=== PATIENT | female | born 1930 | race Caucasian/White ===

== ENCOUNTER 2018-08-03 18:29 | Inpatient (IN) | payer MEDICARE, OTHER ==
[~2018-08-03] VITALS: Ht 162.6 cm; Wt 69.1 kg
[~2018-08-03 18:29] MED LIST: ASPIRIN81 MG PO; ATENOLOL25 MG PO; CARAFATE1 GM PO; CLONIDINE HCL0.1 MG PO; Cefuroxime Axetil PO; EVISTA60 MG PO; FENOFIBRATE145 MG PO; FENOFIBRATE200 MG PO; FEROSUL325 MG PO; FUROSEMIDE20 MG PO; LEVOTHYROXINE75 MCG PO; LOVASTATIN40 MG PO; NEXIUM40 MG PO; NIFEDIPINE ER60 MG PO; SUCRALFATE1 GM PO
[2018-08-03] MEDS ORDERED: ONDANSETRON HCL INJ 2MG/ML 2ML 2 MG/ML VIAL IV ONE (18:48)
[2018-08-03] MEDS ORDERED: MORPHINE SULFATE 2 MG/ML SYR 1ML IV STA (18:48)
[2018-08-03] MEDS ORDERED: SODIUM CHLORIDE 0.9% 500ML 500 ML IV STA (18:48)
[2018-08-03] MEDS ORDERED: MORPHINE SULFATE INJ 4 MG/ML INJ 1ML IV ONE (19:00)
[2018-08-03 20:05] LABS: BASOPHILS % 0.1 % (0.0-1.0); HEMATOCRIT 32.5 % (34.2-44.1); HEMOGLOBIN 10.8 g/dL (12.0-16.0); LYMPHOCYTES # (AUTO) 1.6 (1.0-3.2); LYMPHOCYTES % 19.3 % (18.0-39.1); MEAN CORPUSCULAR HGB CONC 33.2 g/dL (31-35); MEAN CORPUSCULAR VOLUME 93.4 fL (81-99); MONOCYTES # (AUTO) 0.6 (0.2-0.8); MONOCYTES % 6.9 % (4.4-11.3); NEUTROPHILS # (AUTO) 6.2 (2.1-6.9); PLATELET COUNT 285 x10e3/uL (140-360); RED BLOOD COUNT 3.48 x10e6/uL (3.6-5.1); RED CELL DISTRIBUTION WIDTH 13.3 % (11.7-14.4)
--- NOTE | 2018-08-03 20:11 | Diagnostic Imaging Report ---
EXAMINATION: CHEST SINGLE (PORTABLE) INDICATION: Pain. COMPARISON: None FINDINGS: TUBES and LINES: None. LUNGS: Bibasilar subsegmental atelectasis. There is no evidence of pneumonia or pulmonary edema. PLEURA: No pleural effusion or pneumothorax. HEART AND MEDIASTINUM: The cardiomediastinal silhouette is unremarkable. The aorta is tortuous and ectatic prominence of ascending aorta. BONES AND SOFT TISSUES: No acute osseous lesion. Soft tissues are unremarkable. UPPER ABDOMEN: No free air under the diaphragm. IMPRESSION: No acute thoracic abnormality. Tortuous aorta. Signed by: Dr. Dontrell Ron M.D. on 08/03/2018 8:07 PM
[2018-08-03 20:16] LABS: INR 0.9; PROTHROMBIN TIME 12.6 seconds (11.9-14.5)
[2018-08-03 20:17] LABS: PARTIAL THROMBOPLASTIN TIME 30.1 seconds (23.8-35.5)
[2018-08-03 20:27] LABS: ALBUMIN 3.7 g/dL (3.5-5.0); ALBUMIN/GLOBULIN RATIO 0.7 (0.8-2.0); ANION GAP 13.9 mmol/L (8-16); CALCIUM 10.7 mg/dL (8.4-10.2); CHOL/HDL RATIO 4.4 (3.0-3.6); CREATININE, SERUM 1.6 mg/dL (0.57-1.11); MAGNESIUM 1.8 MG/DL (1.3-2.1); POTASSIUM 3.9 mmol/L (3.5-5.1)
[2018-08-03 20:33] LABS: CREATINE KINASE MB 2.8 ng/mL (0-5.0)
[2018-08-03] MEDS ORDERED: DIATRIZOATE MEGL/DIATRIZOA SOD 30 ML BTL PO ONE (20:46)
[2018-08-03 20:57] LABS: BILIRUBIN,URINE NEGATIVE (NEGATIVE); CLARITY,URINE CLEAR (CLEAR); COLOR,URINE STRAW (YELLOW); KETONES,URINE NEGATIVE (NEGATIVE); LEUKOCYTE ESTERASE ,URINE NEGATIVE (NEGATIVE); NITRITE,URINE NEGATIVE (NEGATIVE); PROTEIN,URINE DIPSTICK NEGATIVE (NEGATIVE); URINE UROBILINOGEN 0.2 mg/dL (0.2 - 1)
[2018-08-03 21:10] LABS: BACTERIA,URINE MODERATE /HPF
[2018-08-03] MEDS ORDERED: ATACAND16 MG PO (21:26)
[2018-08-03] MEDS ORDERED: NIFEDIPINE ER30 M1 PO (21:26)
[2018-08-03] MEDS ORDERED: CALCIUM 500+D1 EACH PO (21:26)
[2018-08-03] MEDS ORDERED: NYSTATIN1 EAC2 (21:26)
[2018-08-03] MEDS ORDERED: POLYETHYLENE GL17 GM PO (21:26)
--- NOTE | 2018-08-03 21:30 | Diagnostic Imaging Report ---
EXAMINATION: CT of the abdomen and pelvis without contrast. TECHNIQUE: Helical CT images of the abdomen and pelvis were performed from the lung bases to the lesser trochanters. No intravenous contrast was given per renal stone protocol. Coronal and sagittal reformatted images were obtained.Dose modulation, iterative reconstruction, and/or weight based adjustment of the mA/kV was utilized to reduce the radiation dose to as low as reasonably achievable. COMPARISON: None. CLINICAL HISTORY:Epigastric pain DISCUSSION: ABSENCE OF INTRAVENOUS CONTRAST DECREASES SENSITIVITY FOR DETECTION OF FOCAL LESIONS AND VASCULAR PATHOLOGY. ABDOMEN/PELVIS: LOWER THORAX: Unremarkable. HEPATOBILIARY:No focal hepatic lesions. Age-related dilation of the common bile duct. The gallbladder is normal. SPLEEN: No splenomegaly. PANCREAS: No focal masses or ductal dilatation. ADRENALS: No adrenal nodules. KIDNEYS/URETERS: Right extrarenal pelvis. Cavitation adjacent to the right ureter within the gonadal vein. PELVIC ORGANS/BLADDER: Bladder is normal. Hysterectomy. PERITONEUM/RETROPERITONEUM: No free air or fluid. LYMPH NODES: No intra-abdominal,retroperitoneal, pelvic or inguinal lymphadenopathy. VESSELS: Vascular calcifications. GI TRACT: No distention or wall thickening. Scattered colonic diverticulosis without inflammatory change. BONES AND SOFT TISSUES: Sclerotic foci in the left iliac bone. Lower lumbar facet arthrosis. Scattered degenerative disc disease most prominent at the thoracolumbar junction. IMPRESSION: No acute CT finding. Signed by: Dr. Kristopher Balderrama M.D. on 08/03/2018 9:27 PM
--- OUTSIDE RECORDS SUMMARY | 2018-08-03 22:41 | XMS REPORT ---
[facility] Address Unknown Phone Unavailable Care Team Providers Care Manager Council Name Role Phone Kira GORDON Unavailable Unavailable Problems This patient has no known problems. Allergies, Adverse Reactions, Alerts This patient has no known allergies or adverse reactions. Medications This patient has no known medications. Results Test Description Test Time Test Comments Text Results Atomic Results Result Comments CT ABDOMEN/PELVIS WO 2018-08-03 21:20:00 [facility] [address] [address] Patient Name: NEETA TORRES MR #: [id number] : 1930 Age/Sex: 88/F Req #: [id number] Adm Physician: Ordered by: TRISHA KATZ NP Report #: [id number] Location: ER Room/Bed: Procedure: [id number] CT/CT ABDOMEN/PELVIS WO Exam Date: 08/03/18 Exam Time: 2049 REPORT STATUS: Signed EXAMINATION: CT of the abdomen and pelvis without contr ast. TECHNIQUE: Helical CT images of the abdomen and pelvis were performed from the lung bases to the lesser trochanters. No intravenous contrast was given per renal stone protocol. Coronal and sagittal reformatted images were obtained.Dose modulation, iterative reconstruction, and/or weight based adjustment of the mA/kV was utilized to reduce the radiation dose to as low as reasonably achievable. COMPARISON: None. CLINICAL HISTORY:Epigastric pain DISCUSSION: ABSENCE OF INTRAVENOUS CONTRAST DECREASES SENSITIVITY FOR DETECTION OF FOCAL LESIONS AND VASCULAR PATHOLOGY. ABDOMEN/PELVIS: LOWER THORAX: Unremarkable. HEPATOBILIARY:No focal hepatic lesions. Age- related dilation of the common bile duct. The gallbladder is normal. SPLEEN: No splenomegaly. PANCREAS: No focal masses or ductal dilatation. ADRENALS: No adrenal nodules. KIDNEYS/URETERS: Right extrarenal pelvis. Cavitation adjacent to the right ureter within the gonadal vein. PELVIC ORGANS/BLADDER: Bladder is normal. Hysterectomy. PERITONEUM/RETROPERITONEUM: No free air or fluid. LYMPH NODES: No intra- abdominal,retroperitoneal, pelvic or inguinal lymphadenopathy. VESSELS: Vascular calcifications. GI TRACT: No distention or wall thickening. Scattered colonic diverticulosis without inflammatory change. BONES AND SOFT TISSUES: Sclerotic foci in the left iliac bone. Lower lumbar facet arthrosis. Scattered degenerative disc disease most prominent at the thoracolumbar junction. IMPRESSION: No acute CT finding. Signed by: Dr. Nathanael Rangel M.D. on 08/03/2018 9:27 PM Dictated By: NATHANAEL RANGEL MD 26 Transcribed By: ANDRA on 08/03/182126 COPY TO: TRISHA KATZ NP CHEST SINGLE (PORTABLE) 2018-08-03 20:06:00 [address] [address] Patient Name: NEETA TORRES MR #: [id number] : 1930 Age/Sex: 88/F Req #: [id number] Adm Physician: Ordered by: TRISHA KATZ NP Report #: [id number] Location: ER Room/Bed: Procedure: [id number] DX/CHEST SINGLE (PORTABLE) Exam Date: 08/03/18 Exam Time: 1914 REPORT STATUS: Signed EXAMINATION: CHEST SINGLE (PORTABLE) INDICAT ION: Pain. COMPARISON: None FINDINGS: TUBES and LINES: None. LUNGS: Bibasilar subsegmental atelectasis. There is no evidence of pneumonia or pulmonary edema. PLEURA: No pleural effusion or pneumothorax. HEART AND MEDIASTINUM: The cardiomediastinal silhouette is unremarkable. The aorta is tortuous and ectatic prominence of ascending aorta. BONES AND SOFT TISSUES: No acute osseous lesion. Soft tissues are unremarkable. UPPER ABDOMEN: No free air under the diaphragm. IMPRESSION: No acute thoracic abnormality. Tortuous aorta. Signed by: Dr. Dontrell Porter M.D. on 08/03/2018 8:07 PM Dictated By: RABIA PORTER MD, MD 06 Transcribed By: ANDRA on 08/03/182006 COPY TO: TRISHA KATZ NP
[2018-08-03] MEDS ORDERED: HYDRALAZINE HCL 20 MG/ML VIAL IV PRN (22:45)
[2018-08-03] MEDS: ONDANSETRON HCL INJ 2MG/ML 2ML 2 MG/ML VIAL IV PRN (22:55)
[2018-08-03] MEDS: SODIUM CHLORIDE 0.9% 1000ML 1,000 ML IV SCH (22:55)
[2018-08-03] MEDS: PIPER-TAZ 3.375 GM / NS 50ML IV SCH (22:55)
[2018-08-03] MEDS: MORPHINE SULFATE INJ 4 MG/ML INJ 1ML IV PRN (22:55)
[2018-08-03 23:30] VITALS: BP 182/79
[2018-08-03 23:42] VITALS: BP 160/62
[2018-08-04] VITALS (15 sets, daily range): BP systolic 86–176; BP diastolic 57–112
--- NOTE | 2018-08-04 03:33 | NUR ---
RN received report from ER around 2300. Patient arrived on the floor around 2325 for epigastric pain and decreased appetite. The patient is A/Ox4 with the vital signs within the normal parameters. Bed set low, wheels locked with side rails up x2 and bed alarm on. Patient was instructed to use call light when needing to void. The patient is to have MRCP tomorrow morning. The patient rated her pain 0/10 after receiving pain medication in the ER prior to arrival on the floor. The patient is hard of hearing and wears hearing aid. Monitor patient for pain.
[2018-08-04 05:28] LABS: BASOPHILS % 0.1 % (0.0-1.0); HEMATOCRIT 28.5 % (34.2-44.1); LYMPHOCYTES % 13.6 % (18.0-39.1); MEAN CORPUSCULAR HEMOGLOBIN 30.2 pg (28-32); MEAN CORPUSCULAR HGB CONC 31.6 g/dL (31-35); MEAN CORPUSCULAR VOLUME 95.6 fL (81-99); MONOCYTES # (AUTO) 0.8 (0.2-0.8); MONOCYTES % 11.1 % (4.4-11.3); NEUTROPHILS # (AUTO) 5.7 (2.1-6.9); NEUTROPHILS % 74.8 % (38.7-80.0); PLATELET COUNT 225 x10e3/uL (140-360); RED BLOOD COUNT 2.98 x10e6/uL (3.6-5.1); RED CELL DISTRIBUTION WIDTH 13.4 % (11.7-14.4)
[2018-08-04 05:54] LABS: ALBUMIN 2.8 g/dL (3.5-5.0); ALBUMIN/GLOBULIN RATIO 0.7 (0.8-2.0); ANION GAP 8.9 mmol/L (8-16); CALCIUM 9.4 mg/dL (8.4-10.2); CREATININE, SERUM 1.3 mg/dL (0.57-1.11); POTASSIUM 4.9 mmol/L (3.5-5.1)
--- NOTE | 2018-08-04 07:12 | NUR ---
PT AWAKE RESP EVEN AND UNLABORED, NO C/O PAIN WHEN ASKED, PT ABLE TO MAKE NEEDS KNOWN, PT HAS FAMILY MEMBERS AT BEDSIDE, CALL LIGHT IN REACH.
[2018-08-04] MEDS: ONDANSETRON HCL INJ 2MG/ML 2ML 2 MG/ML VIAL IV PRN (07:37)
[2018-08-04] MEDS: MORPHINE SULFATE INJ 4 MG/ML INJ 1ML IV PRN ×2 (07:37→19:30)
[2018-08-04] MEDS: SODIUM CHLORIDE 0.9% 1000ML 1,000 ML IV SCH ×3 (08:47→18:13)
--- NOTE | 2018-08-04 09:22 | Consultation ---
DATE OF CONSULTATION: 08/04/2018 REASON FOR PRESENTATION: Right upper quadrant pain. HISTORY OF PRESENT ILLNESS: The patient is a pleasant 88-year-old female, who looks younger than her chronologic age, admitted through the emergency room to Dr. Peña's service complaining of right upper quadrant pain that had become more severe the evening of admission after drinking soup at home. Prior to that, she had developed some abdominal discomfort. No major severe pain two days ago. She did not have any vomiting. The patient denied any similar episodes in the past. The patient in the emergency room underwent a renal stone protocol, which revealed no acute findings. The reason for the renal stone protocol is not clear to me as this patient's urine was entirely normal. Her admission CBC revealed a white count of 8.49, hemoglobin of 10.8, hematocrit of 32.5, normal platelet count. Coagulation studies were normal. Liver chemistries were abnormal with bilirubin of 1.4, AST 404, and ALT of 367 with a normal alkaline phosphatase. Subsequent liver function tests from this morning on August 04, 2018, revealed a bilirubin of 1.8 and an AST of 595, which is up, and an ALT of 429, which is up, and a normal alkaline phosphatase still at 133. The patient at this point is feeling better and repeat WBC is 7.59. PAST MEDICAL HISTORY: Significant for hyperthyroidism and hypertension. PAST SURGICAL HISTORY: Previous surgeries include hysterectomy and appendectomy as a child. ALLERGIES: SULFA AND CIPRO. SOCIAL HISTORY: She does not drink. Does not smoke. REVIEW OF SYSTEMS: Remarkable for what has been stated. PHYSICAL EXAMINATION: GENERAL: Reveals an 88-year-old female, in no acute distress. HEAD, EYES, EARS, NOSE, AND THROAT: Reveals no acute process. LUNGS: Clear. HEART: Reveals regular sinus rhythm. ABDOMEN: Soft with some right upper quadrant tenderness. No obvious mass. There is some protuberance of the abdomen. EXTREMITIES: Reveal no clubbing, cyanosis, or edema. ASSESSMENT: Right upper quadrant pain. CT scan renal stone protocol (that means without either IV or oral contrast) reveals no acute process. There is elevation of the liver enzymes. R/O choledocholithiais PLAN: At this point, we are awaiting a cholangio MRCP to rule out the possibility of a common bile duct stone versus pancreatic pathology versus cholecystitis. She is already on IV Unasyn. We will follow the patient along with you. MD SHANA Hernández/NAIMA /[id number] DALLIN
--- NOTE | 2018-08-04 12:00 | NUR ---
pt was given 10mg hydralazine iv, for b/p 173/72, pt tolerated well.
--- NOTE | 2018-08-04 12:13 | Diagnostic Imaging Report ---
EXAM: Magnetic Resonance Cholangiopancreatography (M.R.C.P.) INDICATION: ^EVAL FOR CHOLODUCOLITHIASIS^Y COMPARISON: CT abdomen and pelvis 08/03/2018. TECHNIQUE: Multiplanar, multisequence MRCP was performed, with sequences including coronal turbo spin-echo T1-weighted scans, [facility] MRCP scans, coronal spin, coronal MPR 2, SMRCP 3D HR, [facility] MRCP GALVAN. Thick and thin thin slab MRCP sequences are performed with rotational images. IV Contrast: None Oral Contrast: None Medications: None COMPLICATIONS: None FINDINGS: LOWER THORAX: Trace bilateral pleural effusions with atelectasis. HEPATOBILIARY: Mild periportal edema. Mild common bile duct dilatation measuring up to 10 mm. Mild intrahepatic biliary dilatation. 0.6 cm distal CBD stone. Questionable other 2 other tiny stones distally. GALLBLADDER: Gallbladder is distended measuring 8.9 x 4.4 cm. Diffuse wall thickening and/trace pericholecystic fluid. There are layering gallstones and sludge. SPLEEN: No splenomegaly. PANCREAS: No focal masses or ductal dilatation. ADRENALS: No adrenal nodules KIDNEYS/URETERS: No hydronephrosis. No cystic or solid mass lesions. No stones. GI TRACT: No abnormal distention, wall thickening, or evidence of bowel obstruction. LYMPH NODES: No lymphadenopathy. VESSELS: Unremarkable. PERITONEUM / RETROPERITONEUM: No free air or fluid. BONES: Unremarkable. SOFT TISSUES: Unremarkable. IMPRESSION: 1. Choledocholithiasis with a 0.6 cm stone. 2 other possible smaller stones. Common bile duct is dilated 10 mm. 2. Acute calculus cholecystitis. Signed by: Dr. Jerald Ayoub M.D. on 08/04/2018 12:09 PM
--- NOTE | 2018-08-04 12:20 | NUR ---
EKG ordered Stat. charge Nurse notified, Dr. Peña was called spoke to A/S Ela. left message.
--- NOTE | 2018-08-04 12:20 | NUR ---
pt c/o chest pain, 02 placed on pt at 2nc, vital signs 194/79, 83p, 22r, 99% sat.
--- NOTE | 2018-08-04 12:25 | NUR ---
tele monitor put on pt at this time.
--- NOTE | 2018-08-04 12:25 | NUR ---
pt vitals signs 175/75, p102, r 22., Dr. Peña was called again, message left.
--- NOTE | 2018-08-04 12:30 | NUR ---
Dr. Peña was called and stated Dr Sifuentes telecommunications network planner, and is here and visited pt. V/S 168/85, p 100, 20,. pt, pain at 3 and is feeling better daughters at bedside.
--- NOTE | 2018-08-04 12:37 | NUR ---
pt was given nitro 0.4 tablet under tongue, pt stated her pain was at 2-3, Dr Sifuentes with pt at this time. family also at bedside.
[2018-08-04] MEDS ORDERED: NITROGLYCERIN 0.4 MG SUBL ONE (12:41)
--- NOTE | 2018-08-04 12:42 | NUR ---
pt given 2nd nitro tab 0.4mg under tongue, pt stated pain almost gone, EKG team here for 2nd EKG.
--- NOTE | 2018-08-04 12:52 | NUR ---
pt V/S 154/76, 20r, p 112, pt stable, family at bed, 3rd sublingual 0.4 nitro given, pt tolerated well. call light in reach.
--- NOTE | 2018-08-04 12:55 | NUR ---
pt to transfer to ICU, report given to FRAN Vela in ICU
[2018-08-04] MEDS ORDERED: SODIUM CHLORIDE 0.9% 1000ML 1,000 ML IV SCH ×2 (13:19→13:21)
[2018-08-04] MEDS ORDERED: EPTIFIBATIDE 75mg 100ML 100 ML ONE (13:29)
[2018-08-04] MEDS ORDERED: EPTIFIBATIDE 10 ML ONE (13:29)
[2018-08-04] MEDS ORDERED: IOPAMIDOL 370 MG/ML 200 ML INFUS..BTL INJ ONE (13:29)
[2018-08-04] MEDS ORDERED: HEPARIN SOD/SOD CHLORIDE 2,000 ML ONE (13:29)
[2018-08-04] MEDS ORDERED: LIDOCAINE HCL 2% LOCAL 20 ML VIAL ONE (13:29)
[2018-08-04] MEDS ORDERED: LORAZEPAM 0.5 MG TAB PO PRN (13:30)
[2018-08-04] MEDS ORDERED: DIPHENHYDRAMINE HCL 25 MG CAP PO PRN ×2 (13:30)
[2018-08-04] MEDS ORDERED: PREDNISONE 20 MG TAB PO PRN (13:30)
[2018-08-04] MEDS ORDERED: MIDAZOLAM HCL 2 MG/2 ML VIAL ONE (13:30)
[2018-08-04] MEDS ORDERED: HYDROCORTISONE SOD SUCCINATE 100 MG VIAL IV PRN (13:30)
[2018-08-04] MEDS ORDERED: ALPRAZOLAM 0.5 MG TAB PO PRN (13:30)
[2018-08-04] MEDS ORDERED: FENTANYL CITRATE/PF 100MCG/2 ML INJ ONE (13:30)
[2018-08-04] MEDS ORDERED: SODIUM CHLORIDE FLUSH 10 ML SYR INJ PRN (13:30)
[2018-08-04] MEDS ORDERED: METHYLPREDNISOLONE SOD SUCC 125 MG/2ML VIAL IV PRN (13:30)
[2018-08-04] MEDS ORDERED: FAMOTIDINE 20 MG TAB PO PRN (13:30)
[2018-08-04] MEDS ORDERED: ASPIRIN 325 MG TAB PO ONE (14:00)
[2018-08-04] MEDS: PIPER-TAZ 3.375 GM / NS 50ML IV SCH ×2 (14:00→22:09)
--- NOTE | 2018-08-04 14:00 | NUR ---
CONSULT FOR DR. Osito PUGA CALLED, HERE TO ROUND SPOKE TO FAMILY NO FURTHER ORDERS RECEIVED
[2018-08-04] MEDS ORDERED: HEPARIN SOD (PORCINE) 1000 UNIT/ML 30ML ONE (14:15)
[2018-08-04] MEDS ORDERED: NITROGLYCERIN/D5W 200 MCG/ML 0 ML ONE (14:16)
[2018-08-04] MEDS ORDERED: LABETALOL HCL 20 ML ONE (14:20)
--- NOTE | 2018-08-04 14:24 | Diagnostic Imaging Report ---
EXAMINATION: CHEST SINGLE (PORTABLE) INDICATION: ^Cardiac Catheterization COMPARISON: Chest x-ray 08/03/2018. FINDINGS: AP view TUBES and LINES: None. LUNGS: Lungs are well inflated. There are bibasilar atelectasis. There is mild prominence of the central pulmonary vasculature, consistent with pulmonary venous congestion. PLEURA: No pleural effusion or pneumothorax. HEART AND MEDIASTINUM: The cardiomediastinal silhouette is unremarkable. Aorta is tortuous. BONES AND SOFT TISSUES: No acute osseous lesion. Soft tissues are unremarkable. UPPER ABDOMEN: No free air under the diaphragm. IMPRESSION: Nonspecific central pulmonary venous congestion. This may be related to developing fluid overload versus related to abdominal pathology. Signed by: Dr. Jerald Ayoub M.D. on 08/04/2018 2:20 PM
[2018-08-04] MEDS ORDERED: CLOPIDOGREL BISULFATE 75 MG TAB ONE (14:54)
[2018-08-04] MEDS ORDERED: ASPIRIN 325 MG TAB ONE (14:54)
[2018-08-04] MEDS ORDERED: EPTIFIBATIDE 2 MG/1 ML 10ML VIAL IV ONE (15:30)
--- NOTE | 2018-08-04 16:58 | NUR ---
CALLED TO NOTIFY OF PATIENT R GROIN SITE, SOME SWELLING PURPLE AND HARDENING OF AREA NOTED THIS RN TOLD THAT IT APPEARED TO BE A HEMATOMA ACT RESULTS GIVEN. STATES " I DOUBT IT, PULL THE SHEATH AND HOLD PRESSURE FOR 20 MIN. "
[2018-08-04] MEDS ORDERED: ATROPINE SULFATE 0.1 MG/ML 10ML SYR ONE (17:09)
--- NOTE | 2018-08-04 17:33 | NUR ---
SHEATH PULLED, PRESSURE DRESSING APPLIED ICE PACK APPLIED TO SURROUNDING AREA . WILL CONTINUE TO MONITOR CLOSELY
[2018-08-04] MEDS: METRONIDAZOLE 500MG/NS 100ML 100 ML IV SCH ×2 (17:51→23:59)
--- NOTE | 2018-08-04 18:19 | Consultation ---
DATE OF CONSULTATION: 08/04/2018 Cardiology Consultation HISTORY OF PRESENT ILLNESS: Ms. Leavitt is a charming, but very elderly 88-year-old woman, who is admitted at this time for abdominal discomfort. The patient reports that she has had indigestion after every meal for perhaps several weeks and has lost her appetite. Of note, this patient developed chest discomfort today for the very first time after being given 10 mg of hydralazine intravenously for hypertension. PAST MEDICAL HISTORY: Significant for hypertension, previous peptic ulcer disease. She had hysterectomy at age 42 and she was hospitalized at [facility] for pneumonia in 2016 without recurrence. HOME MEDICATIONS: Include clonidine 0.2 daily, Nexium 40 mg daily, fenofibrate 145 mg daily, levothyroxine 75 mcg daily, lovastatin 40 mg daily, nifedipine ER 60 mg b.i.d., Evista. ALLERGIES: SHE REPORTS THAT SHE IS ALLERGIC TO SULFA DRUGS AND CIPROFLOXACIN. PHYSICAL EXAMINATION: GENERAL: At this time shows elderly white woman, who is alert and responsive. VITAL SIGNS: Blood pressure 165/90, pulse is 100 with prematures. HEAD, EYES, EARS, NOSE, AND THROAT: Relatively unremarkable. NECK: There are faint bruits versus radiated murmur. LUNGS: Clear. HEART: Shows S1, S2 equal. There is 1/6 systolic murmur and prematures. ABDOMEN: Protuberant. Mild tenderness. EXTREMITIES: No cyanosis, clubbing, or edema. LABORATORY DATA: EKG shows ST-segment elevation, new since the admitting EKG, which was performed on the 03 of August. BUN 15, creatinine 1.3. Hemoglobin 9.0. MRI of the abdomen shows a cholecystitis and gallstones. ASSESSMENT: 1. Cholecystitis. 2. New onset angina/ST-segment elevation myocardial infarction. PLAN: I have been giving her aspirin and nitroglycerin sublingual. We will plan to take her to the wharf laborer for left heart catheterization and possible intervention if indicated. Prognosis is very guarded. MD QUYNH Navarro/NAIMA /[id number]
--- NOTE | 2018-08-04 19:20 | NUR ---
Call back from Dr. Sifuentes. Advised of chest pain. Orders for Morphine.
[2018-08-04] MEDS ORDERED: MORPHINE SULFATE INJ 4 MG/ML INJ 1ML ONE (19:30)
--- NOTE | 2018-08-04 19:30 | NUR ---
Medicated for Morphine.
[2018-08-05] VITALS (25 sets, daily range): BP systolic 102–163; BP diastolic 48–88
[2018-08-05] MEDS ORDERED: EPTIFIBATIDE 10 ML ONE (00:49)
[2018-08-05] MEDS: PANTOPRAZOLE 40 MG 10ML VIAL IV SCH ×2 (01:04→12:36)
--- NOTE | 2018-08-05 01:04 | NUR ---
Dr. Mahesh Bazan here. Orders given. Protonix IV given.
[2018-08-05 04:52] LABS: HEMATOCRIT 27.7 % (34.2-44.1); HEMOGLOBIN 8.5 g/dL (12.0-16.0); LYMPHOCYTES # (AUTO) 1.2 (1.0-3.2); LYMPHOCYTES % 17.6 % (18.0-39.1); MEAN CORPUSCULAR HEMOGLOBIN 30.2 pg (28-32); MEAN CORPUSCULAR HGB CONC 30.7 g/dL (31-35); MEAN CORPUSCULAR VOLUME 98.6 fL (81-99); MONOCYTES # (AUTO) 0.6 (0.2-0.8); MONOCYTES % 8.4 % (4.4-11.3); NEUTROPHILS # (AUTO) 4.8 (2.1-6.9); NEUTROPHILS % 73.5 % (38.7-80.0); PLATELET COUNT 239 x10e3/uL (140-360); RED BLOOD COUNT 2.81 x10e6/uL (3.6-5.1); RED CELL DISTRIBUTION WIDTH 13.8 % (11.7-14.4)
[2018-08-05] MEDS: SODIUM CHLORIDE 0.9% 1000ML 1,000 ML IV SCH ×3 (05:10→21:19)
[2018-08-05 05:12] LABS: ALANINE AMINOTRANSFERASE 397 IU/L (0-55); ALBUMIN 2.3 g/dL (3.5-5.0); ALBUMIN/GLOBULIN RATIO 0.6 (0.8-2.0); ALKALINE PHOSPHATASE 189 IU/L (40-150); ANION GAP 11.2 mmol/L (8-16); BLOOD UREA NITROGEN 15 mg/dL (7-26); BUN/CREATININE RATIO 15 (6-25); CALCIUM 9.3 mg/dL (8.4-10.2); CARBON DIOXIDE 23 mmol/L (22-29); CHLORIDE 109 mmol/L (98-107); CHOLESTEROL 132 MD/DL (0-199); CREATININE, SERUM 0.97 mg/dL (0.57-1.11); EST GLOMERULAR FILTRATION RATE 54 ML/MIN (60-); GLUCOSE 102 mg/dL (74-118); HDL CHOLESTEROL 12 MG/DL (40-60); LDL CHOLESTEROL 96 MG/DL (60-130); POTASSIUM 4.2 mmol/L (3.5-5.1); SODIUM 139 mmol/L (136-145); TRIGLYCERIDES 121 MG/DL (0-149)
[2018-08-05] MEDS: PIPER-TAZ 3.375 GM / NS 50ML IV SCH ×3 (05:30→22:07)
[2018-08-05 05:33] LABS: HCG,QUANTITATIVE < 1.20 mIU/mL (0-10); THYROID STIMULATING HORMONE 1.861 uIU/mL (0.350-4.940)
[2018-08-05] MEDS: METRONIDAZOLE 500MG/NS 100ML 100 ML IV SCH ×3 (06:00→17:58)
[2018-08-05] MEDS: MORPHINE SULFATE INJ 4 MG/ML INJ 1ML IV PRN ×2 (06:48→22:45)
--- NOTE | 2018-08-05 06:49 | NUR ---
c/o abd pain 09/03. Medicated with Morphine.
[2018-08-05] MEDS: ASPIRIN 325 MG TAB PO SCH (08:35)
[2018-08-05] MEDS: CLOPIDOGREL BISULFATE 75 MG TAB PO SCH (08:35)
[2018-08-05] MEDS: NITROGLYCERIN 0.4 MG PATCH TOP SCH (08:35)
[2018-08-05] MEDS ORDERED: ASPIRIN 325 MG TAB PO SCH (09:00)
--- NOTE | 2018-08-05 11:30 | NUR ---
MD DR. DASILVA ROUNDING ON PATIENT, STATES NO CARDIAC ENZYMES OR EKG DONE THIS AM. CARDIAC ENZYMES WHERE NOT ORDERED CALLED LAB ADDED TO MORNING BLOODWORK MD CONFIRMS NO OTHER ENZYMES NEEDED AT THIS TIME. EKG DONE STAT MD IN ROOM. MD ORDERS RECEIVED MD STATES THAT PROCEDURE SHOULD BE DONE SOONER RATHER THAN LATER. THIS RN NOTIFIED RADIOLOGY DEPARTMENT.
--- NOTE | 2018-08-05 12:15 | NUR ---
SPOKE WITH REGARDING PATIENT POC, ASKED THIS RN TO NOTIFY DR.M PUGA REGARDING PROCEDURE THIS RN CALLED AND SPOKE TO DR.M PUGA REGARDING PLAN FOR CHOLECYSTOSTOMY TUBE NO FURTHERS ORDERS RECEIVED. IN RADIOLOGY MADE AWARE OF NEED FOR PROCEDURE.
--- NOTE | 2018-08-05 12:30 | NUR ---
NOTIFIED OF CARDIAC ENZYMES NO FURTHER ORDERS RECEIVED.
[2018-08-05] MEDS ORDERED: LIDOCAINE HCL 1% LOCAL INJ 20 ML VIAL INJ ONE (14:15)
[2018-08-05] MEDS ORDERED: FENTANYL CITRATE/PF 100MCG/2 ML INJ IV ONE (14:15)
[2018-08-05] MEDS ORDERED: MIDAZOLAM HCL 2 MG/2 ML VIAL IV ONE (14:30)
--- NOTE | 2018-08-05 14:30 | NUR ---
CHOLECYSTOSTOMY TUBE PLACEMENT BEING DONE AT BEDSIDE.
[2018-08-05] MEDS: HYDROMORPHONE 2MG/ML 2 MG/ML ML IV PRN (16:50)
[2018-08-05] MEDS: SODIUM CHLORIDE 0.9% 250ML IRRIG IR SCH (20:35)
[2018-08-06] VITALS (25 sets, daily range): BP systolic 111–166; BP diastolic 50–99
[2018-08-06] MEDS: METRONIDAZOLE 500MG/NS 100ML 100 ML IV SCH ×4 (00:34→17:32)
[2018-08-06] MEDS: PANTOPRAZOLE 40 MG 10ML VIAL IV SCH ×2 (00:56→14:36)
[2018-08-06] MEDS: SODIUM CHLORIDE 0.9% 1000ML 1,000 ML IV SCH ×3 (02:15→16:25)
[2018-08-06] MEDS: HYDROMORPHONE 2MG/ML 2 MG/ML ML IV PRN ×2 (03:44→17:33)
[2018-08-06 05:00] LABS: BASOPHILS % 0.2 % (0.0-1.0); HEMATOCRIT 24.1 % (34.2-44.1); HEMOGLOBIN 7.7 g/dL (12.0-16.0); LYMPHOCYTES # (AUTO) 1.3 (1.0-3.2); LYMPHOCYTES % 11.5 % (18.0-39.1); MEAN CORPUSCULAR HEMOGLOBIN 30.8 pg (28-32); MEAN CORPUSCULAR VOLUME 96.4 fL (81-99); MONOCYTES # (AUTO) 0.9 (0.2-0.8); MONOCYTES % 7.7 % (4.4-11.3); NEUTROPHILS # (AUTO) 8.9 (2.1-6.9); NEUTROPHILS % 79.7 % (38.7-80.0); PLATELET COUNT 233 x10e3/uL (140-360); RED CELL DISTRIBUTION WIDTH 13.9 % (11.7-14.4)
[2018-08-06 05:17] LABS: ALBUMIN 2.3 g/dL (3.5-5.0); ALBUMIN/GLOBULIN RATIO 0.6 (0.8-2.0); ANION GAP 10.9 mmol/L (8-16); CALCIUM 9.6 mg/dL (8.4-10.2); CREATININE, SERUM 0.92 mg/dL (0.57-1.11); POTASSIUM 3.9 mmol/L (3.5-5.1)
[2018-08-06] MEDS: PIPER-TAZ 3.375 GM / NS 50ML IV SCH ×3 (05:29→21:17)
--- NOTE | 2018-08-06 06:29 | Diagnostic Imaging Report ---
Examination: Single AP view of the chest. COMPARISON: August 04, 2018 INDICATION: Biliary colic DISCUSSION: Lines/tubes: None. Lungs: Central venous congestion. No pneumonia. Pleura: No pleural effusion or pneumothorax. Heart and mediastinum: The heart and the mediastinum are unremarkable. Bones and soft tissues: No acute bony abnormalities. IMPRESSION: Central pulmonary venous congestion Signed by: Dr. Kristopher Balderrama M.D. on 08/06/2018 6:26 AM
[2018-08-06] MEDS: SODIUM CHLORIDE 0.9% 250ML IRRIG IR SCH ×3 (07:51→21:17)
[2018-08-06] MEDS: ASPIRIN 325 MG TAB PO SCH (08:15)
[2018-08-06] MEDS: NITROGLYCERIN 0.4 MG PATCH TOP SCH (08:15)
[2018-08-06] MEDS: CLOPIDOGREL BISULFATE 75 MG TAB PO SCH (08:15)
--- NOTE | 2018-08-06 11:21 | Operative Report ---
DATE OF PROCEDURE: 08/04/2018 SURGEON: Saurav Sifuentes MD REPORT TITLE: Cardiac Cath and Intervention Note Ms. Leavitt is a very elderly 88-year-old woman, who was admitted on the for cholecystitis. While on the hospital floor, she had sudden onset of chest discomfort with acute ST elevation. She was brought to the boat laborer where she was premedicated with 0.5 mg of Versed and the right groin was prepped and scrubbed. A 2% xylocaine and 6-Serbian sheath placed in the right common femoral artery. Right and left heart catheterization done with 4-Serbian right and left Aspen catheters. The right coronary artery is relatively unremarkable large dominant vessel. The left main is mildly diseased with about a 30% proximal and 30% distal stenosis. The proximal LAD is calcified with about a 99% stenosis in its proximal portion and about 50% stenosis after the first septal special needs babysitter. There is LIZZETTE-I flow with first injection. The circumflex and large OM vessels are relatively unremarkable vessels. Then, using 6-Serbian left Aspen guide, a 0.014 Hi-Torque floppy in the 3.0 x 15 mm balloon. The LAD is ballooned with some residual stenosis. A [employer] Synergy stent is advanced into the LAD and deployed at 11 atmospheres. There was some resistance to removal of the balloon, but post procedure, angiogram demonstrates excellent flow. The patient was given Integrilin and heparin and was given 600 mg Plavix and 325 mg aspirin at the end of the case. Her chest discomfort was resolved and ST segments were coming down. She was returned to her room in stable condition to continue Integrilin drip. FINAL IMPRESSION: 1. Acute anterior myocardial infarction. 2. Right coronary artery relatively unremarkable. 3. A 30% stenosis of the left main as above. 4. A 99% and 50% stenosis of the left anterior descending and calcified vessel. 5. Successful balloon and stent of the left anterior descending as above. There are no complications. No blood loss. She is hemodynamically stable. MD QUYNH Navarro/NAIMA /[id number] cc: MD Johnie Pozo MD
[2018-08-06] MEDS: MORPHINE SULFATE INJ 4 MG/ML INJ 1ML IV PRN (14:36)
[2018-08-06] MEDS: ONDANSETRON HCL INJ 2MG/ML 2ML 2 MG/ML VIAL IV PRN (21:17)
[2018-08-07] VITALS (25 sets, daily range): BP systolic 85–161; BP diastolic 52–103
[2018-08-07] MEDS: METRONIDAZOLE 500MG/NS 100ML 100 ML IV SCH ×3 (02:00→12:19)
[2018-08-07] MEDS: PANTOPRAZOLE 40 MG 10ML VIAL IV SCH ×2 (02:15→13:31)
--- NOTE | 2018-08-07 02:40 | NUR ---
Called into room because patient says she didn't feel good but was unable to explain why. VTach noted on monitor a few minutes later. Rapid response called and Dr. Renteria, rapid response team, charge nurse and supervisor steno pool present. Orders received. Patient cardioverted x 2. Dr. Sifuentes notified by hot metal charger regarding patient situation, and orders during rapid response. Amiodarone gtt started at 0245.
[2018-08-07] MEDS ORDERED: MORPHINE SULFATE INJ 4 MG/ML INJ 1ML IV ONE ×2 (02:43→02:55)
[2018-08-07] MEDS ORDERED: AMIODARONE HCL 150MG 100 ML IV ONE (02:44)
[2018-08-07] MEDS ORDERED: MAGNESIUM SULFATE 2GM/50ML 50 ML IV ONE ×2 (02:49→02:50)
--- NOTE | 2018-08-07 03:00 | NUR ---
well driller helper Tanya notified Dr. Sifuentes of events and orders. Orders received through her.
[2018-08-07 03:32] LABS: ALANINE AMINOTRANSFERASE 224 IU/L (0-55); ALBUMIN 2.5 g/dL (3.5-5.0); ALBUMIN/GLOBULIN RATIO 0.5 (0.8-2.0); ALKALINE PHOSPHATASE 156 IU/L (40-150); ANION GAP 13.9 mmol/L (8-16); BLOOD UREA NITROGEN 16 mg/dL (7-26); BUN/CREATININE RATIO 19 (6-25); CALCIUM 10.1 mg/dL (8.4-10.2); CARBON DIOXIDE 17 mmol/L (22-29); CHLORIDE 111 mmol/L (98-107); CREATINE KINASE 135 IU/L (29-168); CREATININE, SERUM 0.86 mg/dL (0.57-1.11); EST GLOMERULAR FILTRATION RATE > 60 ML/MIN (60-); GLUCOSE 122 mg/dL (74-118); POTASSIUM 3.9 mmol/L (3.5-5.1); SODIUM 138 mmol/L (136-145)
[2018-08-07 03:36] LABS: INR 1.15; PROTHROMBIN TIME 15.3 seconds (11.9-14.5)
--- NOTE | 2018-08-07 04:05 | NUR ---
Dr. Sifuentes informed of patient's troponin levels. stated "he will see her in a few minutes".
[2018-08-07] MEDS ORDERED: HEPARIN 25,000U/0.45% NS 250ML 25,000 UNIT in Premix Bag 250 ML IV SCH (04:15)
[2018-08-07] MEDS ORDERED: HEPARIN SOD (PORCINE) 5,000 UNIT/ML VIAL IV ONE (04:15)
[2018-08-07] MEDS ORDERED: HEPARIN 25,000U/0.45% NS 250ML 250 ML IV ONE (04:25)
[2018-08-07] MEDS ORDERED: METOPROLOL TARTRATE INJ 1 MG/ML VIAL ONE (04:35)
[2018-08-07] MEDS ORDERED: METOPROLOL TARTRATE INJ 1 MG/ML VIAL IV ONE (04:45)
[2018-08-07 04:52] LABS: BASOPHILS % 0.2 % (0.0-1.0); HEMATOCRIT 26.2 % (34.2-44.1); HEMOGLOBIN 8.2 g/dL (12.0-16.0); LYMPHOCYTES # (AUTO) 3.5 (1.0-3.2); LYMPHOCYTES % 24.3 % (18.0-39.1); MEAN CORPUSCULAR HEMOGLOBIN 30.5 pg (28-32); MEAN CORPUSCULAR HGB CONC 31.3 g/dL (31-35); MEAN CORPUSCULAR VOLUME 97.4 fL (81-99); MONOCYTES # (AUTO) 0.8 (0.2-0.8); MONOCYTES % 5.9 % (4.4-11.3); NEUTROPHILS # (AUTO) 9.7 (2.1-6.9); NEUTROPHILS % 68.3 % (38.7-80.0); PLATELET COUNT 318 x10e3/uL (140-360); RED BLOOD COUNT 2.69 x10e6/uL (3.6-5.1); RED CELL DISTRIBUTION WIDTH 14.5 % (11.7-14.4)
--- NOTE | 2018-08-07 05:00 | NUR ---
Spoke with remote pharmacy to verify heparin weight based protocol and rate. Rate verified by pharmacy to start at 700 un/hr or 7 mL/hr of heparin. Started at 0515.
[2018-08-07] MEDS: SODIUM CHLORIDE 0.9% 1000ML 1,000 ML IV SCH ×2 (05:08→15:22)
[2018-08-07] MEDS: METOPROLOL TARTRATE 25 MG TAB PO SCH ×3 (06:42→16:31)
[2018-08-07] MEDS: ONDANSETRON HCL INJ 2MG/ML 2ML 2 MG/ML VIAL IV PRN (07:01)
[2018-08-07 07:30] LABS: CREATINE KINASE MB 7.7 ng/mL (0-5.0)
[2018-08-07] MEDS ORDERED: AMIODARONE HCL 900 MG in DEXTROSE 5% 500ML 500 ML IV ONE ×2 (07:45→21:30)
[2018-08-07] MEDS: PIPER-TAZ 3.375 GM / NS 50ML IV SCH (08:25)
[2018-08-07] MEDS: NITROGLYCERIN 0.4 MG PATCH TOP SCH ×2 (08:25→09:00)
[2018-08-07] MEDS: CLOPIDOGREL BISULFATE 75 MG TAB PO SCH (08:25)
[2018-08-07] MEDS: SODIUM CHLORIDE 0.9% 250ML IRRIG IR SCH ×3 (08:25→21:58)
[2018-08-07] MEDS: ASPIRIN 325 MG TAB PO SCH (08:25)
--- NOTE | 2018-08-07 09:23 | NUR ---
called dr jerez regarding current c/o nausea. s/w farrah
[2018-08-07] MEDS ORDERED: PROMETHAZINE 12.5MG/ NACL 0.9% 12.5 MG/50 ML BAG IV PRN (09:30)
--- NOTE | 2018-08-07 10:37 | NUR ---
ASSESSMENT: Spiritual concern [employer] responded to consult request initiated by pt's daughter. 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 Pt's daughters (2) and son-in-law at bedside. Intervention: Provided empathic listening and prayer. Provided information on availability of service architect and how to reach service architect, if needed. Outcome: Pt & family expressed appreciation for visit. Followed up with nurse. Will follow as able. VALDEMAR Finleylain Spiritual Care Department O: [phone] Pager: [phone] ([phone] number calling from)
[2018-08-07] MEDS ORDERED: CEFTRIAXONE SOD 1 GM/NS 50 ML 50 ML IV SCH (11:00)
[2018-08-07] MEDS ORDERED: GUAIFENESIN 600MG/DEXTROMETHORPHAN 30MG TABSR PO PRN (17:30)
[2018-08-07] MEDS: VANCOMYCIN 750MG/NS 150ML IVPB 150 ML IV SCH (18:00)
[2018-08-07] MEDS ORDERED: AMIODARONE 900MG 900 MG/500 ML BAG IV ONE (18:48)
--- NOTE | 2018-08-07 19:40 | NUR ---
Spoke with Dr. Peña regarding pt's c/o SOB/cough, crackles auscultated, and RR at 1940. New orders received. CXR ordered.
[2018-08-07] MEDS ORDERED: FUROSEMIDE INJ 10 MG/ML 4 ML VIAL IV ONE ×2 (19:43→21:30)
--- NOTE | 2018-08-07 20:57 | Diagnostic Imaging Report ---
A single frontal view of the chest. HISTORY: SOB COMPARISON: Chest radiograph August 06, 2018 DISCUSSION: Portable technique, limits sensitivity of the exam. Left anterior oblique rotation. Soft tissue attenuation partially limits sensitivity of the exam. Overlying monitoring leads. Tubes/Lines: None Lungs and pleura: Increased diffuse patchy interstitial and airspace opacities. Mild left basilar atelectasis. Small left pleural effusion. Heart and mediastinum: The cardiac silhouette and central pulmonary vasculature are enlarged. Bones and soft tissues: Appear unremarkable, given this limited exam. IMPRESSION: Findings compatible with increased volume overload resulting in central pulmonary vascular congestion, moderate pulmonary edema, small left effusion, and adjacent atelectasis. Signed by: Dr. Clifford Lucas D.O., M.M.M. on 08/07/2018 8:54 PM
[2018-08-07] MEDS: MEROPENEM 500MG/ NS 50ML 50 ML IV SCH (21:17)
--- NOTE | 2018-08-07 21:20 | NUR ---
Read back results of CXR to Dr. Peña. New orders received.
[2018-08-08] VITALS (20 sets, daily range): BP systolic 95–169; BP diastolic 42–111
--- NOTE | 2018-08-08 00:10 | Consultation ---
DATE OF CONSULTATION: 08/07/2018 REASON FOR CONSULTATION: Recommendations on antibiotic. HISTORY OF PRESENT ILLNESS: This patient, who is an 88-year-old white female, very pleasant. She recently presented on August 03 with abdominal pain. The patient had right upper quadrant pain. She has a history of indigestion. The patient was evaluated first, felt to have cholecystitis. She was seen by GI, started on IV antibiotic. Apparently, her blood pressure was high and she was given hydralazine. She dropped her blood pressure. Dr. Lam was there. She was noted to have chest pain. He took her immediately, where she underwent cardiac catheterization. The patient had a cardiac event, myocardial infarction. She was on Zosyn and Flagyl. She continued to have nausea. I was asked to see her today. The patient underwent cholecystectomy. It was felt because she had myocardial infarction, we cannot do cholecystectomy. The patient has been in ICU since 10 today. Apparently in early hours in the morning, she had to be cardioverted twice. She had nausea earlier. Now, she is having coughing and congestion. Cough started today. I am asked to see her. The patient is currently alert and comfortable, but in ICU. Family at the bedside. I have discussed the case with Dr. Peña and with Dr. Schwartz. I have seen and examined her. The patient was also seen earlier by my physician licensed nursing assistant. The patient is currently lying in bed comfortably. Family at the bedside. The patient had acute anterior myocardial infarction, right coronary artery was notably unremarkable, 30% stenosis of left main was noted, 99% stenosis of the left anterior descending vessel with successful balloon and stent placement. She also had cholecystectomy as mentioned above. PAST MEDICAL HISTORY: As above. PAST SURGICAL HISTORY: As above. ALLERGIES: NKA. SOCIAL HISTORY: No smoking, drug abuse, or alcohol abuse. FAMILY HISTORY: Heart disease. REVIEW OF SYSTEMS: At the present time: HEENT: There is no headache, visual changes, or hearing changes. GENERAL: She is not feeling well. She is complaining of some nausea. Congested with cough and seems wet cough. : There is no urgency or frequency. SKIN: There is no rash. JOINTS: There is no erythema or edema. CARDIAC: There is no chest pain now, but she did have arrhythmias earlier, had to be shocked twice. GI: There is nausea. No vomiting. No diarrhea. NEURO: No seizure activity. SKIN: There is no rash. JOINT: No erythema or edema. PHYSICAL EXAMINATION: GENERAL: Alert and oriented, does not seem to be in acute distress. VITAL SIGNS: Stable, currently afebrile. HEENT: Normocephalic. Not icteric. NECK: Supple. No JVD. No lymphadenopathy. No thyromegaly. CHEST: Few rhonchi bilateral. HEART: S1 and S2. No S3, S4, or murmur. ABDOMEN: Soft. Bowel sounds present. No tenderness. EXTREMITIES: No edema. SKIN: There is no rash. LABORATORY DATA: Reviewed. BUN 15 and creatinine 0.97. White count 6.5, hemoglobin 8.5, platelet 139. PT 12.6, AST 434, bilirubin 1.3, ALT 397. MEDICATIONS: Reviewed. She was using metronidazole and piperacillin/tazobactam, which was changed to Rocephin and Flagyl. She is also on methylprednisolone, nitroglycerin. IMPRESSION: 1. Cholecystitis, concerned about early cholangitis, cholelithiasis. 2. Concern about pneumonia, healthcare associated after an event overnight as mentioned above. 3. Status post myocardial infarction, status post [id number] myocardial infarction. 4. Status post cholecystectomy. 5. Concern about pneumonia, maybe aspiration, healthcare associated. 6. Nausea, could be drug related, could be from cholelithiasis. 7. Atrial fibrillation, nonsustained ventricular tachycardia, status post conversion. 8. Anemia of chronic disease, probably a component of acute illness. I would recommend to put the patient on vancomycin and meropenem. Discontinue all dental antibiotics, doses adjusted for kidney function. I am concerned she may be going to acute kidney injury. Continue with IV fluids, supportive care. Discussed with Internal Medicine. We will follow. MD PARVIZ Willard/NAIMA /[id number]
[2018-08-08] MEDS: PANTOPRAZOLE 40 MG 10ML VIAL IV SCH ×2 (01:37→18:06)
[2018-08-08 05:25] LABS: BASOPHILS % 0.2 % (0.0-1.0); LYMPHOCYTES # (AUTO) 0.7 (1.0-3.2); LYMPHOCYTES % 5.5 % (18.0-39.1); MEAN CORPUSCULAR HEMOGLOBIN 30.9 pg (28-32); MEAN CORPUSCULAR HGB CONC 31.5 g/dL (31-35); MEAN CORPUSCULAR VOLUME 98.2 fL (81-99); MONOCYTES # (AUTO) 0.6 (0.2-0.8); MONOCYTES % 4.9 % (4.4-11.3); NEUTROPHILS # (AUTO) 10.1 (2.1-6.9); NEUTROPHILS % 85.1 % (38.7-80.0); PLATELET COUNT 318 x10e3/uL (140-360); RED CELL DISTRIBUTION WIDTH 14.7 % (11.7-14.4)
[2018-08-08] MEDS: MEROPENEM 500MG/ NS 50ML 50 ML IV SCH ×3 (05:27→20:00)
[2018-08-08] MEDS: ONDANSETRON HCL INJ 2MG/ML 2ML 2 MG/ML VIAL IV PRN (05:28)
[2018-08-08 05:36] LABS: HEMATOCRIT 21.6 % (34.2-44.1)
[2018-08-08 05:39] LABS: HEMOGLOBIN 6.8 g/dL (12.0-16.0)
[2018-08-08 05:41] LABS: ANION GAP 14.6 mmol/L (8-16); CALCIUM 9.4 mg/dL (8.4-10.2); POTASSIUM 4.6 mmol/L (3.5-5.1)
[2018-08-08 05:45] LABS: CREATININE, SERUM 1.47 mg/dL (0.57-1.11)
[2018-08-08] MEDS ORDERED: FUROSEMIDE INJ 10 MG/ML 2 ML VIAL IV PRN (06:15)
[2018-08-08] MEDS: HYDROMORPHONE 2MG/ML 2 MG/ML ML IV PRN (06:17)
[2018-08-08] MEDS ORDERED: SODIUM CHLORIDE 0.9% 250ML 250 ML IV ONE (06:30)
[2018-08-08] MEDS: VANCOMYCIN 750MG/NS 150ML IVPB 150 ML IV SCH ×2 (06:40→18:00)
[2018-08-08] MEDS: ASPIRIN 325 MG TAB PO SCH (09:00)
[2018-08-08] MEDS: SODIUM CHLORIDE 0.9% 250ML IRRIG IR SCH ×2 (09:35→16:31)
[2018-08-08] MEDS ORDERED: ALBUMIN 5% 0.05 GM/ML BTL IV ONE (10:00)
[2018-08-08] MEDS ORDERED: SODIUM CHLORIDE 0.9% 1000ML 1,000 ML IV SCH ×2 (10:00→11:00)
[2018-08-08] MEDS: POLYETHYLENE GLYCOL 3350 17 GM PACK PO SCH ×2 (10:27→17:00)
[2018-08-08] MEDS: METOPROLOL TARTRATE 25 MG TAB PO SCH ×2 (10:27→17:00)
[2018-08-08] MEDS: NITROGLYCERIN 0.4 MG PATCH TOP SCH (10:27)
[2018-08-08] MEDS ORDERED: ALBUMIN 5% 250ML 500 ML IV ONE (10:30)
[2018-08-08] MEDS: LORAZEPAM INJ 2 MG/ML VIAL IV PRN ×2 (10:56→21:10)
--- NOTE | 2018-08-08 11:15 | NUR ---
ASSESSMENT: Spiritual distress Bracelet Form Coverer referred by RN. Pt sleeping soundly with pt's daughters (2) and grandson at bedside. Pt's family experiencing anticipatory grief. Pt's family state pt has decided to refuse further treatment and even though it isn't their hope, they "respect her decision." Pt's daughters expressing emotions thru words and tears. Pt's family state pt's biophysics teacher provided anointing of the sick yesterday. Intervention: Facilitated conversation about end-of-life care and autonomy of patients wishes. Provided pastoral presence and compassionate touch. Reminded family of availability of automatic tire tester. Outcome: Pt's family expressed appreciation for support. Will continue to follow as able. Followed up with FRAN. VALDEMAR FRANCIS Bracelet Form Coverer Spiritual Care Department O: [phone] Pager: [phone] ([phone] calling from)
--- NOTE | 2018-08-08 12:06 | Diagnostic Imaging Report ---
EXAM: CHEST SINGLE (PORTABLE) DATE: 08/08/2018 9:45 AM INDICATION: ^possible PNA ^[id number] ^[id number] COMPARISON: Chest x-ray, 08/07/2018 FINDINGS: Lines and tubes: None Cardiac silhouette is slightly prominent, likely related to projection. Airspace opacities in the right lung apex and left lung base have increased in prominence since previous exam. There is trace left pleural effusion. No pneumothorax. Upper abdomen unremarkable. No acute bony abnormality. IMPRESSION: Increased airspace opacities in the right upper lobe and left lower lobe. There is mild pulmonary vascular prominence. These findings may represent edema or, in the proper clinical setting, pneumonia. Signed by: Dr. Dionte Callahan M.D. on 08/08/2018 12:02 PM
--- NOTE | 2018-08-08 13:43 | NUR ---
WOUND CARE PUP SCREEN Fabrice Score =16 Moderate PUP LOS= 4 days Age= 88 y/o Alternating Pressure Air Mattress set to patient Current Weight. HOB = 30 Degrees Patient Position: Back Heels offloaded with pillows. PATIENT VISIT / SKIN CHECK: No Pressure Ulcers Identified. RECOMMENDATION: - Continue Moderate PUP Addendum: 08/08/18 at 1344 by Aleksey Jorge RN Amended: Links added.
[2018-08-08] MEDS ORDERED: AMIODARONE HCL 200 MG TAB PO SCH (14:00)
--- NOTE | 2018-08-08 14:20 | NUR ---
SPOKE WITH FAMILY ABOUT DIFFERNT HOSPICE CHOICES, THEY WOULD LIKE TO SPEAK WITH 2 COMPANIES [facility] AND [facility]. CALLED REP RK AND FAXED FACE SHEET TO HER TO CONTACT FAMILY ALSO SPOKE WITH [facility] AND FAXED CLINICALS TO [phone]. FAMILY WILL LET SW KNOW OF DECISION ON WHICH HOSPICE COMPANY THEY CHOOSE. WILL UPDATE WHEN GET FURTHER INFORMATION.
--- NOTE | 2018-08-08 14:49 | NUR ---
SPOKE WITH FARAZ WITH [facility] THE NURSE TE WILL BE HERE IN APROX 1 TO 2 HOURS TO MEET WITH FAMILY AND [facility] WILL BE MEETING WITH FAMILY IN 3 TO 4 HOURS. CALLED BATCH TRUCKER TO LET KNOW COMING TO SEE PT.
[2018-08-08] MEDS ORDERED: ALPRAZOLAM 0.25 MG TAB PO SCH (17:00)
[2018-08-08] MEDS: CLOPIDOGREL BISULFATE 75 MG TAB PO SCH (18:06)
--- NOTE | 2018-08-08 19:32 | NUR ---
Received patient from day nurse, patient is alert and oriented, patient has a drain, hunter and iv access, patient is to be discharged to hospice with all the above medical device assembler, as per nursing report and discharge order. Hospice facility has being called by day nurse and they have receive all the information needed, patient is currently awaiting for transport. Patient refused iv antibiotics due.
--- NOTE | 2018-08-08 21:10 | NUR ---
Patient discharged and picked up by ems en route to [facility], patient daughter requested for lorazepam for patient before being transported out because patient was severely anxious.
--- NOTE | 2018-08-13 08:04 | Diagnostic Imaging Report ---
Procedure: Cholecystostomy tube placement with ultrasound guidance nitroglycerin separator operator: Vane Longoria MD Pre-operative diagnosis: Acute cholecystitis Post-operative diagnosis: Acute cholecystitis; status post cholecystostomy tube placement Conscious Sedation: IV Fentanyl and Versed per ICU nursing records The patient's heart rate and pulse oximetry were continuously monitored by the ICU nurse. Additional Medications: 20 cc Lidocaine 1% for local anesthesia Radiation dose: N/A Contrast used: None. Estimated blood loss: None. Specimens: Total of 150 cc of cloudy bilious fluid. Implants: 8 Fr Agrawal-Weiss catheter Blood products administered: None Condition at completion of procedure: Stable Disposition: In ICU TECHNIQUE/FINDINGS: Informed consent was obtained and documented in the medical record after discussion of risks and benefits. The patient was placed in the supine position and the right upper abdomen was prepped and draped in the standard sterile fashion. Initial ultrasound demonstrated findings of acute cholecystitis. A suitable percutaneous approach to the gallbladder was identified by sonography and 1% lidocaine was infiltrated into the skin and subcutaneous tissues for local anesthesia. Subsequently, a 25 gauge spinal needle was used to administer lidocaine to the level of the gallbladder wall. With ultrasound guidance, an 8 Fr Agrawal-Weiss catheter was advanced directly into the gallbladder with tandem trochar technique. A permanent sonographic image was stored in the medical record. The inner stiffener was removed and the pigtail was formed. The catheter was then connected to gravity drainage. The catheter was secured to the skin with two Ethilon sutures and a sterile dressing was applied. A total of 150 cc of cloudy bilious fluid was aspirated. Post procedural ultrasound demonstrated decompression of the gallbladder. The patient tolerated the procedure well without immediate complication. IMPRESSION: Ultrasound guided placement of a percutaneous cholecystostomy catheter (8 Fr DM) with aspiration of 150 cc of cloudy bilious fluid. If there is no interval surgery, catheter will need to remain in place for 6 weeks to prevent bile leak and await tract maturity. IR consult may be placed for fluoroscopic catheter evaluation prior to removal. Signed by: Dr. Vane Longoria MD on 08/13/2018 8:00 AM
== END 2018-08-08 21:14 | disposition hospice, inpatient (51) | DRG 981 ==
LOC: ER 18:29 → ERHOLD 22:38 → MED/SURG2 23:17 → ICU 08-04 13:15
PROVIDERS: ADMIT Internal Medicine; ATTEND Internal Medicine
PROC: 027034Z Dilation of Coronary Artery, One Artery with Drug-eluting Intraluminal Device, Percutaneous Approach (ICD-10-PCS; 2018-08-04)
PROC: B2111ZZ Fluoroscopy of Multiple Coronary Arteries using Low Osmolar Contrast (ICD-10-PCS; 2018-08-04)
PROC: 3E033PZ Introduction of Platelet Inhibitor into Peripheral Vein, Percutaneous Approach (ICD-10-PCS; 2018-08-04)
PROC: 0F9430Z Drainage of Gallbladder with Drainage Device, Percutaneous Approach (ICD-10-PCS; principal; 2018-08-05)
PROC: 5A2204Z Restoration of Cardiac Rhythm, Single (ICD-10-PCS; 2018-08-07)
DX: K80.62 Calculus of gallbladder and bile duct with acute cholecystitis without obstruction (principal); I21.09 ST elevation (STEMI) myocardial infarction involving other coronary artery of anterior wall; J69.0 Pneumonitis due to inhalation of food and vomit; I47.2 Ventricular tachycardia; I25.119 Atherosclerotic heart disease of native coronary artery with unspecified angina pectoris; I25.84 Coronary atherosclerosis due to calcified coronary lesion; E05.90 Thyrotoxicosis, unspecified without thyrotoxic crisis or storm; I10 Essential (primary) hypertension; I48.91 Unspecified atrial fibrillation; D63.8 Anemia in other chronic diseases classified elsewhere; D47.2 Monoclonal gammopathy; B96.1 Klebsiella pneumoniae [K. pneumoniae] as the cause of diseases classified elsewhere; Z51.5 Encounter for palliative care; Z66 Do not resuscitate; Z88.1 Allergy status to other antibiotic agents; Z88.2 Allergy status to sulfonamides; Z87.11 Personal history of peptic ulcer disease
CPT/HCPCS: 36415; 47490; 71045; 74176; 74181; 74470; 76942; 80048; 80053; 80061; 81001; 82150; 82270; 82550; 82553; 83690; 83735; 84443; 84484; 84702; 85025; 85610; 85730; 86850; 86900; 87070; 87186; 87205; 92928; 93005; 93306; 93454; 99284; C1725; C1729; C1769; C1874; J0360; J0696; J1327; J1644; J1940; J2001; J2060; J2250; J2270; J2405; J2543; J2550; J3475; J7030; J7040; J7060; Q9967